=== PATIENT | female | born 1965 | race Caucasian/White ===

== ENCOUNTER 2017-03-21 19:05 | Inpatient (IN) | payer OTHER, SELFPAY ==
[~2017-03-21] VITALS: Ht 157.5 cm; Wt 116.9 kg
[2017-03-21 19:32] LABS: HEMOGLOBIN 13.8 g/dL (11.7-16.4); WHITE BLOOD COUNT 7.3 x10^3/uL (3.4-10)
[2017-03-21 19:43] LABS: BLOOD UREA NITROGEN 16 mg/dL (7-18)
[2017-03-21] MEDS ORDERED: METF500T27 PO (20:02)
[2017-03-21] MEDS ORDERED: LISI-170 PO (20:02)
[2017-03-21] MEDS ORDERED: ASPIRIN 325 MG TABLET PO STA (21:26)
[2017-03-21] MEDS ORDERED: DEXAMETHASONE 4 MG/ML, 1ML IVPush ONE ×2 (21:30)
[2017-03-21] MEDS ORDERED: DEXAMETHASONE 4 MG/ML, 1ML ONE (21:38)
[2017-03-21] MEDS ORDERED: ASPIRIN 325 MG TABLET ONE (21:38)
[2017-03-21] MEDS ORDERED: morphine SULFATE 10 MG/ML, 1ML IVPush PRN (22:30)
[2017-03-21] MEDS ORDERED: hydrALAzine 20 MG/ML, 1ML IVPush PRN (22:30)
[2017-03-21] MEDS: INSULIN ASPART 100 UNITS/ML, PEN SQ-INSULIN SCH (22:30)
[2017-03-21] MEDS ORDERED: LORazepam 2 MG/ML, 1ML IVPush PRN (22:30)
[2017-03-21 23:01] VITALS: BP 157/82
[2017-03-22] MEDS ORDERED: GADOBUTROL 10 MMOL/10 ML PFS ONE (07:11)
[2017-03-22 08:00] VITALS: BP 148/82
[2017-03-22] MEDS: LISINOPRIL 20 MG TABLET PO SCH (10:03)
[2017-03-22] MEDS: INSULIN ASPART 100 UNITS/ML, PEN SQ-INSULIN SCH ×4 (10:03→22:15)
[2017-03-22] MEDS: PANTOPRAZOLE 40 MG IV IVPush SCH (10:03)
[2017-03-22] MEDS ORDERED: ACETAMINOPHEN 325 MG TABLET PO PRN (11:30)
[2017-03-22] MEDS: HEPARIN 5,000 UNITS/ML, 1ML SQ SCH ×2 (11:30→19:30)
[2017-03-22] MEDS: DEXAMETHASONE 4 MG/ML, 1ML IVPush SCH ×2 (12:25→18:33)
[2017-03-22] MEDS ORDERED: OMNIPAQUE 350 MG/ML, 100ML BOTTLE ONE (14:10)
[2017-03-22 15:44] VITALS: BP 145/84
[2017-03-22 20:00] VITALS: BP 132/77
[2017-03-23] MEDS: DEXAMETHASONE 4 MG/ML, 1ML IVPush SCH ×4 (00:25→18:16)
[2017-03-23 02:00] VITALS: BP 144/83
[2017-03-23] MEDS: HEPARIN 5,000 UNITS/ML, 1ML SQ SCH ×3 (02:50→19:30)
[2017-03-23 05:54] LABS: BLOOD UREA NITROGEN 18 mg/dL (7-18)
[2017-03-23 07:13] VITALS: BP 120/71
[2017-03-23] MEDS: PANTOPRAZOLE 40 MG IV IVPush SCH (09:01)
[2017-03-23] MEDS: LISINOPRIL 20 MG TABLET PO SCH (09:01)
[2017-03-23] MEDS: INSULIN ASPART 100 UNITS/ML, PEN SQ-INSULIN SCH ×4 (09:02→20:27)
[2017-03-23 14:44] VITALS: BP 150/92
[2017-03-23 18:46] VITALS: BP 146/80
[2017-03-24] MEDS: DEXAMETHASONE 4 MG/ML, 1ML IVPush SCH ×4 (00:21→18:37)
[2017-03-24 00:23] VITALS: BP 128/77
[2017-03-24] MEDS: HEPARIN 5,000 UNITS/ML, 1ML SQ SCH ×3 (03:30→19:30)
[2017-03-24 06:28] VITALS: BP 147/85
[2017-03-24] MEDS: LISINOPRIL 20 MG TABLET PO SCH (08:54)
[2017-03-24] MEDS: PANTOPRAZOLE 40 MG IV IVPush SCH (08:54)
[2017-03-24] MEDS: INSULIN ASPART 100 UNITS/ML, PEN SQ-INSULIN SCH ×4 (08:55→21:47)
[2017-03-24 17:50] VITALS: BP 163/96
[2017-03-24 20:00] VITALS: BP 131/83
[2017-03-25] MEDS: DEXAMETHASONE 4 MG/ML, 1ML IVPush SCH ×4 (00:59→17:35)
[2017-03-25 01:51] VITALS: BP 126/86
[2017-03-25] MEDS: HEPARIN 5,000 UNITS/ML, 1ML SQ SCH ×3 (03:09→19:30)
[2017-03-25 07:27] VITALS: BP 148/81
[2017-03-25] MEDS: INSULIN ASPART 100 UNITS/ML, PEN SQ-INSULIN SCH ×4 (09:46→22:09)
[2017-03-25] MEDS: LISINOPRIL 20 MG TABLET PO SCH (09:47)
[2017-03-25] MEDS: PANTOPRAZOLE 40 MG IV IVPush SCH (09:47)
[2017-03-25 14:29] VITALS: BP 130/79
[2017-03-25 20:29] VITALS: BP 154/69
[2017-03-26] MEDS: DEXAMETHASONE 4 MG/ML, 1ML IVPush SCH ×2 (00:42→06:05)
[2017-03-26 02:10] VITALS: BP 148/89
[2017-03-26] MEDS: HEPARIN 5,000 UNITS/ML, 1ML SQ SCH ×3 (03:30→16:32)
[2017-03-26 08:11] VITALS: BP 151/88
[2017-03-26] MEDS: LISINOPRIL 20 MG TABLET PO SCH (08:41)
[2017-03-26] MEDS: INSULIN ASPART 100 UNITS/ML, PEN SQ-INSULIN SCH ×3 (08:41→17:48)
[2017-03-26] MEDS: PANTOPRAZOLE 40 MG IV IVPush SCH (08:41)
[2017-03-26] MEDS ORDERED: SIMV5TAB5 PO (12:41)
[2017-03-26] MEDS: DEXAMETHASONE 4 MG TABLET PO SCH ×2 (13:23→17:48)
[2017-03-26 14:33] VITALS: BP 142/92
[2017-03-26] MEDS ORDERED: LORazepam 2 MG/ML, 1ML IVPush PRN (17:00)
[2017-03-26] MEDS ORDERED: morphine SULFATE 10 MG/ML, 1ML IVPush PRN (17:00)
[2017-03-26] MEDS ORDERED: hydrALAzine 20 MG/ML, 1ML IVPush PRN (17:00)
[2017-03-26] MEDS ORDERED: ACETAMINOPHEN 325 MG TABLET PO PRN (17:00)
[2017-03-26] MEDS ORDERED: DEXAMETHASONE 4 MG TABLET PO SCH (17:00)
[2017-03-27] MEDS ORDERED: ASPIRIN 81 MG TABLET CHEW PO SCH (06:00)
[2017-03-27] MEDS ORDERED: LISINOPRIL 20 MG TABLET PO SCH (09:00)
== END 2017-03-26 18:57 | disposition home or self-care (01) | DRG 72 ==
LOC: ED 21:57 → EDIP 22:00 → 4EST 22:51 → 4WST 03-22 02:43
PROVIDERS: ADMIT Hospitalist; ATTEND Hospitalist
DX: G93.9 Disorder of brain, unspecified (principal); E11.42 Type 2 diabetes mellitus with diabetic polyneuropathy; E11.65 Type 2 diabetes mellitus with hyperglycemia; I10 Essential (primary) hypertension; M21.379 Foot drop, unspecified foot; M51.36 Other intervertebral disc degeneration, lumbar region; R29.810 Facial weakness; Z86.73 Personal history of transient ischemic attack (TIA), and cerebral infarction without residual deficits; Z90.49 Acquired absence of other specified parts of digestive tract
CPT/HCPCS: 36415; 70450; 70553; 71260; 72148; 74177; 76390; 80048; 80061; 82040; 82962; 85025; 93005; 93306; 93880; 93922; 96374; A9585; J1100; J1815; Q9967; C9113

== ENCOUNTER 2017-03-30 13:44 | Inpatient (IN) | payer OTHER ==
[~2017-03-30] VITALS: Ht 157.5 cm; Wt 105.8 kg
[~2017-03-30 13:44] MED LIST: LISI-170 PO; METF500T27 PO; SIMV5TAB5 PO
[2017-03-30] MEDS ORDERED: COLE1TAB2 PO (14:13)
[2017-03-30] MEDS ORDERED: DEXA2TAB PO (14:13)
[2017-03-30] MEDS ORDERED: METF500T4 PO (14:13)
[2017-03-30] MEDS ORDERED: ATOR-2 PO (14:14)
[2017-03-30] MEDS ORDERED: SODIUM CHLORIDE FLUSH 10ML SYR IVF ONE (14:30)
[2017-03-30 14:42] LABS: HEMOGLOBIN 16.2 g/dL (11.7-16.4)
[2017-03-30 14:53] LABS: BLOOD UREA NITROGEN 16 mg/dL (7-18)
[2017-03-30 14:59] LABS: ASPARTATE AMINO TRANSFERASE 10 U/L (15-37); IS PT STATUS REG ER OR PRE ER? YES
[2017-03-30] MEDS ORDERED: SODIUM CHLORIDE FLUSH 10ML SYR IVF PRN (16:00)
[2017-03-30] MEDS ORDERED: GADOBUTROL 10 MMOL/10 ML PFS ONE (16:48)
[2017-03-30] MEDS ORDERED: BISACODYL 10 MG SUPP PR PRN (17:00)
[2017-03-30] MEDS ORDERED: ONDANSETRON 2MG/ML, 2ML IVPush PRN (17:00)
[2017-03-30] MEDS ORDERED: ZOLPIDEM 5MG TABLET PO PRN (17:00)
[2017-03-30] MEDS ORDERED: ONDANSETRON ODT 4 MG PO PRN (17:00)
[2017-03-30] MEDS ORDERED: HYDROcodone/APAP 5/325 TABLET PO PRN (17:00)
[2017-03-30] MEDS ORDERED: hydrALAzine 20 MG/ML, 1ML IVPush PRN (17:00)
[2017-03-30 17:47] VITALS: BP 141/81
[2017-03-30] MEDS: metFORMIN 500 MG TABLET PO SCH (20:18)
[2017-03-30 20:58] VITALS: BP 122/84
[2017-03-30] MEDS ORDERED: ATORVASTATIN 80 MG TABLET PO SCH (21:00)
[2017-03-30] MEDS: DEXAMETHASONE 1 MG TABLET PO SCH ×2 (21:00→22:26)
[2017-03-30] MEDS: FAMOTIDINE 20 MG TABLET PO SCH (21:00)
[2017-03-30] MEDS: COLESTIPOL 1 GM TABLET PO SCH (21:00)
[2017-03-30] MEDS: INSULIN ASPART 100 UNITS/ML, PEN SQ-INSULIN SCH (22:22)
[2017-03-31 02:55] VITALS: BP 122/74
[2017-03-31 03:19] VITALS: BP 141/81
[2017-03-31 05:36] LABS: HEMATOCRIT 42.2 % (34.6-47.8); HEMOGLOBIN 14.3 g/dL (11.7-16.4); WHITE BLOOD COUNT 10.3 x10^3/uL (3.4-10)
[2017-03-31 05:45] LABS: BLOOD UREA NITROGEN 17 mg/dL (7-18)
[2017-03-31 06:58] VITALS: BP 129/82
[2017-03-31 07:52] LABS: PATH.CAST-FLAG NOT PRESENT; SPERM-FLAG NOT PRESENT; SRC-FLAG NOT PRESENT; XTAL-FLAG NOT PRESENT; YLC-FLAG NOT PRESENT
[2017-03-31] MEDS: COLESTIPOL 1 GM TABLET PO SCH ×2 (08:34→21:00)
[2017-03-31] MEDS: FAMOTIDINE 20 MG TABLET PO SCH ×2 (08:34→21:03)
[2017-03-31] MEDS: INSULIN ASPART 100 UNITS/ML, PEN SQ-INSULIN SCH ×4 (08:35→21:04)
[2017-03-31] MEDS: metFORMIN 500 MG TABLET PO SCH ×2 (08:35→21:00)
[2017-03-31] MEDS: DEXAMETHASONE 1 MG TABLET PO SCH (08:35)
[2017-03-31] MEDS: LISINOPRIL 20 MG TABLET PO SCH (08:36)
[2017-03-31] MEDS: ENOXAPARIN 40 MG/0.4 ML SQ SCH ×2 (11:30→12:56)
[2017-03-31 14:11] VITALS: BP 127/79
[2017-03-31 19:25] VITALS: BP 123/80
[2017-03-31] MEDS: ATORVASTATIN 10 MG TABLET PO SCH (21:00)
[2017-04-01 02:30] VITALS: BP 109/74
[2017-04-01 08:11] VITALS: BP 144/81
[2017-04-01] MEDS: metFORMIN 500 MG TABLET PO SCH ×2 (09:00→19:12)
[2017-04-01] MEDS: ENOXAPARIN 40 MG/0.4 ML SQ SCH (09:17)
[2017-04-01] MEDS: COLESTIPOL 1 GM TABLET PO SCH ×2 (09:18→20:58)
[2017-04-01] MEDS: FAMOTIDINE 20 MG TABLET PO SCH ×2 (09:19→20:59)
[2017-04-01] MEDS: LISINOPRIL 20 MG TABLET PO SCH (09:20)
[2017-04-01] MEDS: INSULIN ASPART 100 UNITS/ML, PEN SQ-INSULIN SCH ×4 (09:21→21:14)
[2017-04-01 14:20] VITALS: BP 140/78
[2017-04-01 20:00] VITALS: BP 130/78
[2017-04-01] MEDS: ATORVASTATIN 10 MG TABLET PO SCH (20:58)
[2017-04-02 01:32] VITALS: BP 119/70
[2017-04-02] MEDS: metFORMIN 500 MG TABLET PO SCH ×2 (07:39→21:00)
[2017-04-02 07:44] VITALS: BP 134/78
[2017-04-02] MEDS: FAMOTIDINE 20 MG TABLET PO SCH ×2 (08:35→21:20)
[2017-04-02] MEDS: COLESTIPOL 1 GM TABLET PO SCH ×2 (08:35→21:00)
[2017-04-02] MEDS: LISINOPRIL 20 MG TABLET PO SCH (08:36)
[2017-04-02] MEDS: INSULIN ASPART 100 UNITS/ML, PEN SQ-INSULIN SCH ×4 (08:37→21:22)
[2017-04-02] MEDS: ENOXAPARIN 40 MG/0.4 ML SQ SCH (09:00)
[2017-04-02 14:06] VITALS: BP 130/83
[2017-04-02 20:06] VITALS: BP 131/85
[2017-04-02] MEDS: ATORVASTATIN 10 MG TABLET PO SCH (21:00)
[2017-04-03 00:01] VITALS: BP 132/84
[2017-04-03 03:24] LABS: HEMATOCRIT 39.2 % (34.6-47.8); HEMOGLOBIN 13.1 g/dL (11.7-16.4); WHITE BLOOD COUNT 10.3 x10^3/uL (3.4-10)
[2017-04-03 03:33] LABS: BLOOD UREA NITROGEN 13 mg/dL (7-18)
[2017-04-03] MEDS: INSULIN ASPART 100 UNITS/ML, PEN SQ-INSULIN SCH ×4 (07:00→21:16)
[2017-04-03 07:28] VITALS: BP 130/87
[2017-04-03] MEDS ORDERED: GADOBUTROL 10 MMOL/10 ML PFS ONE (08:45)
[2017-04-03] MEDS: metFORMIN 500 MG TABLET PO SCH ×2 (09:00→21:14)
[2017-04-03] MEDS: FAMOTIDINE 20 MG TABLET PO SCH ×2 (09:00→21:19)
[2017-04-03] MEDS: LISINOPRIL 20 MG TABLET PO SCH (09:00)
[2017-04-03] MEDS: COLESTIPOL 1 GM TABLET PO SCH ×2 (09:00→21:18)
[2017-04-03] MEDS ORDERED: REMIFENTANIL 2 MG ONE (10:38)
[2017-04-03] MEDS ORDERED: NEOSTIGMINE 1 MG/ML, 10ML ONE (10:41)
[2017-04-03] MEDS ORDERED: ONDANSETRON 2MG/ML, 2ML ONE (10:41)
[2017-04-03] MEDS ORDERED: PROPOFOL 10 MG/ML, 20ML ONE (10:41)
[2017-04-03] MEDS ORDERED: CEFAZOLIN 1,000 MG ONE (10:41)
[2017-04-03] MEDS ORDERED: DEXAMETHASONE 4 MG/ML, 1ML ONE (10:41)
[2017-04-03] MEDS ORDERED: SUCCINYLCHOLINE 20 MG/ML, 10ML ONE ×2 (10:41)
[2017-04-03] MEDS ORDERED: ROCURONIUM 10 MG/ML ONE (10:41)
[2017-04-03] MEDS ORDERED: GLYCOPYRROLATE 0.2MG/1ML, 5ML ONE (10:41)
[2017-04-03] MEDS ORDERED: MIDAZOLAM 1 MG/ML, 2ML ONE (10:41)
[2017-04-03] MEDS ORDERED: FENTANYL PF 100 MCG/2ML ONE ×4 (10:41→14:48)
[2017-04-03] MEDS ORDERED: OXYcodone 5 MG/5 ML ORAL.SOL UDC PO PRN (11:00)
[2017-04-03] MEDS ORDERED: HYDROcodone/APAP 7.5-325MG/15ML UDC PO PRN (11:00)
[2017-04-03] MEDS ORDERED: HYDROmorphone 1 MG/ML, 1ML IV PRN (11:00)
[2017-04-03] MEDS ORDERED: LABETALOL 5MG/ML, 20ML IV PRN ×2 (11:00→15:00)
[2017-04-03] MEDS ORDERED: hydrALAzine 20 MG/ML, 1ML IV PRN ×2 (11:00→16:00)
[2017-04-03] MEDS ORDERED: ONDANSETRON 2MG/ML, 2ML IVPush PRN (11:00)
[2017-04-03] MEDS ORDERED: BACITRACIN OINT 500U/GM, 15 GM ONE (11:26)
[2017-04-03] MEDS ORDERED: BUPIVACAINE/PF 0.5% ONE (11:26)
[2017-04-03] MEDS ORDERED: THROMBIN 5,000 UNIT VIAL TP ONE (11:26)
[2017-04-03] MEDS ORDERED: BACITRACIN 50,000 UNIT ONE (11:26)
[2017-04-03] MEDS ORDERED: CEFTRIAXONE 1,000 MG ONE (11:27)
[2017-04-03] MEDS ORDERED: LABETALOL 5MG/ML 40ML VIAL ONE (11:42)
[2017-04-03] MEDS ORDERED: LEVETIRACETAM 1,000 MG in SODIUM CHLORIDE 0.9% 100 ML IV ONE (12:00)
[2017-04-03 13:39] VITALS: BP 128/84
[2017-04-03] MEDS ORDERED: OXYcodone 5 MG/5 ML ORAL.SOL UDC ONE (14:36)
[2017-04-03] MEDS ORDERED: hydrALAzine 20 MG/ML, 1ML ONE (14:36)
[2017-04-03] MEDS: hydrALAzine 20 MG/ML, 1ML IV PRN ×2 (14:40→16:03)
[2017-04-03] MEDS: FENTANYL PF 100 MCG/2ML IV PRN ×3 (14:44→15:17)
[2017-04-03] MEDS ORDERED: METOPROLOL 1 MG/ML, 5ML IV PRN (15:00)
[2017-04-03] MEDS ORDERED: DEXAMETHASONE 4 MG TABLET PO SCH (16:00)
[2017-04-03] MEDS ORDERED: DEXAMETHASONE 4 MG/ML, 1ML IV SCH ×2 (16:00→16:30)
[2017-04-03] MEDS ORDERED: BISACODYL 10 MG SUPP PR PRN (16:30)
[2017-04-03] MEDS ORDERED: ACETAMINOPHEN 325 MG TABLET PO PRN (16:30)
[2017-04-03] MEDS ORDERED: MAGNESIUM HYDROXIDE 8%, 30ML UDC PO PRN (16:30)
[2017-04-03] MEDS ORDERED: ONDANSETRON 2MG/ML, 2ML IV PRN (16:30)
[2017-04-03] MEDS ORDERED: OXYcodone/APAP 5/325MG TABLET PO PRN (16:30)
[2017-04-03] MEDS ORDERED: ACETAMINOPHEN 650 MG SUPP PR PRN (16:30)
[2017-04-03] MEDS: morphine SULFATE 10 MG/ML, 1ML IV PRN ×2 (18:14→21:29)
[2017-04-03] MEDS: DEXAMETHASONE 4 MG TABLET PO SCH ×2 (19:54→22:40)
[2017-04-03] MEDS: HYDROcodone/APAP 5/325 TABLET PO PRN (20:10)
[2017-04-03] MEDS: ENALAPRILAT 1.25 MG/ML, 2ML IV SCH ×2 (20:22→20:34)
[2017-04-03] MEDS: CEFAZOLIN PMX 1GM/50ML 50 ML IVPB SCH (20:22)
[2017-04-03] MEDS: NS + 20MEQ KCL 1,000 ML IV SCH (20:22)
[2017-04-03] MEDS: DEXAMETHASONE 10 MG in SODIUM CHLORIDE 0.9% 50 ML IV SCH (21:14)
[2017-04-03] MEDS: ATORVASTATIN 10 MG TABLET PO SCH (21:18)
[2017-04-03] MEDS: LEVETIRACETAM 500 MG in SODIUM CHLORIDE 0.9% 100 ML IV SCH (22:52)
[2017-04-04] MEDS: DEXAMETHASONE 10 MG in SODIUM CHLORIDE 0.9% 50 ML IV SCH ×3 (02:56→20:25)
[2017-04-04] MEDS: HYDROcodone/APAP 5/325 TABLET PO PRN ×4 (03:00→21:20)
[2017-04-04 04:00] VITALS: BP 127/72
[2017-04-04] MEDS: ENALAPRILAT 1.25 MG/ML, 2ML IV SCH ×6 (04:00→23:09)
[2017-04-04] MEDS: DEXAMETHASONE 4 MG TABLET PO SCH (04:30)
[2017-04-04] MEDS: CEFAZOLIN PMX 1GM/50ML 50 ML IVPB SCH (04:38)
[2017-04-04 05:20] LABS: BLOOD UREA NITROGEN 10 mg/dL (7-18)
[2017-04-04 05:22] LABS: HEMATOCRIT 39.1 % (34.6-47.8); HEMOGLOBIN 13.2 g/dL (11.7-16.4); WHITE BLOOD COUNT 13.6 x10^3/uL (3.4-10)
[2017-04-04] MEDS: INSULIN ASPART 100 UNITS/ML, PEN SQ-INSULIN SCH ×4 (07:48→21:25)
[2017-04-04] MEDS ORDERED: GADOBUTROL 10 MMOL/10 ML PFS ONE (08:50)
[2017-04-04] MEDS: metFORMIN 500 MG TABLET PO SCH ×2 (09:00→21:00)
[2017-04-04] MEDS: SENNA/DOCUSATE TABLET PO SCH (09:00)
[2017-04-04] MEDS: COLESTIPOL 1 GM TABLET PO SCH ×2 (09:11→21:00)
[2017-04-04] MEDS: LISINOPRIL 20 MG TABLET PO SCH (09:11)
[2017-04-04] MEDS: FAMOTIDINE 20 MG TABLET PO SCH ×2 (09:11→21:19)
[2017-04-04] MEDS: morphine SULFATE 10 MG/ML, 1ML IV PRN (11:17)
[2017-04-04] MEDS: LEVETIRACETAM 500 MG in SODIUM CHLORIDE 0.9% 100 ML IV SCH ×2 (11:17→23:10)
[2017-04-04] MEDS ORDERED: LIDOCAINE 1%, 20ML ONE (14:59)
[2017-04-04] MEDS ORDERED: FENTANYL PF 100 MCG/2ML ONE (16:20)
[2017-04-04] MEDS: NS + 20MEQ KCL 1,000 ML IV SCH ×2 (17:00→20:25)
[2017-04-04] MEDS ORDERED: VISIPAQUE 270 MG/ML, 50ML BOTTLE ONE (17:10)
[2017-04-04 18:59] VITALS: BP 140/82
[2017-04-04] MEDS: ATORVASTATIN 10 MG TABLET PO SCH (21:00)
[2017-04-05 02:48] VITALS: BP 128/84
[2017-04-05] MEDS: HYDROcodone/APAP 5/325 TABLET PO PRN ×3 (03:19→19:59)
[2017-04-05] MEDS: ENALAPRILAT 1.25 MG/ML, 2ML IV SCH ×5 (03:20→19:59)
[2017-04-05] MEDS: DEXAMETHASONE 10 MG in SODIUM CHLORIDE 0.9% 50 ML IV SCH (03:51)
[2017-04-05 05:59] LABS: HEMATOCRIT 37.8 % (34.6-47.8); HEMOGLOBIN 12.4 g/dL (11.7-16.4); WHITE BLOOD COUNT 12.6 x10^3/uL (3.4-10)
[2017-04-05 06:43] LABS: ASPARTATE AMINO TRANSFERASE 10 U/L (15-37); BLOOD UREA NITROGEN 17 mg/dL (7-18)
[2017-04-05 07:24] VITALS: BP 122/80
[2017-04-05] MEDS: FAMOTIDINE 20 MG TABLET PO SCH ×2 (07:30→21:14)
[2017-04-05] MEDS: LISINOPRIL 20 MG TABLET PO SCH (07:30)
[2017-04-05] MEDS: SENNA/DOCUSATE TABLET PO SCH (07:31)
[2017-04-05] MEDS: metFORMIN 500 MG TABLET PO SCH ×2 (07:31→21:00)
[2017-04-05] MEDS: COLESTIPOL 1 GM TABLET PO SCH ×2 (07:31→21:00)
[2017-04-05] MEDS: INSULIN ASPART 100 UNITS/ML, PEN SQ-INSULIN SCH ×4 (07:35→21:27)
[2017-04-05] MEDS: NS + 20MEQ KCL 1,000 ML IV SCH (10:01)
[2017-04-05 11:08] VITALS: BP 123/80
[2017-04-05] MEDS: LEVETIRACETAM 500 MG in SODIUM CHLORIDE 0.9% 100 ML IV SCH (11:34)
[2017-04-05 13:20] VITALS: BP 125/77
[2017-04-05 16:06] VITALS: BP 131/82
[2017-04-05] MEDS: DEXAMETHASONE 4 MG TABLET PO SCH (16:08)
[2017-04-05 20:00] VITALS: BP 124/85
[2017-04-05] MEDS: ATORVASTATIN 10 MG TABLET PO SCH (21:00)
[2017-04-06] VITALS: BP 127/82
[2017-04-06] MEDS: NS + 20MEQ KCL 1,000 ML IV SCH ×2 (00:08→14:57)
[2017-04-06] MEDS: LEVETIRACETAM 500 MG in SODIUM CHLORIDE 0.9% 100 ML IV SCH ×3 (00:08→23:54)
[2017-04-06] MEDS ORDERED: INSULIN ASPART 100 UNITS/ML, PEN SQ-INSULIN ONE (00:30)
[2017-04-06] MEDS: ENALAPRILAT 1.25 MG/ML, 2ML IV SCH ×6 (00:34→21:52)
[2017-04-06 03:26] VITALS: BP 142/88
[2017-04-06 04:00] VITALS: BP 127/82
[2017-04-06 04:44] LABS: BLOOD UREA NITROGEN 17 mg/dL (7-18)
[2017-04-06 05:29] LABS: HEMATOCRIT 35.8 % (34.6-47.8)
[2017-04-06] MEDS: INSULIN ASPART 100 UNITS/ML, PEN SQ-INSULIN SCH ×4 (07:48→21:33)
[2017-04-06] MEDS: DEXAMETHASONE 4 MG TABLET PO SCH ×2 (07:49→16:06)
[2017-04-06] MEDS: LISINOPRIL 20 MG TABLET PO SCH (07:49)
[2017-04-06] MEDS: COLESTIPOL 1 GM TABLET PO SCH ×2 (07:49→21:00)
[2017-04-06] MEDS: FAMOTIDINE 20 MG TABLET PO SCH ×2 (07:49→21:31)
[2017-04-06] MEDS: SENNA/DOCUSATE TABLET PO SCH (07:50)
[2017-04-06] MEDS: metFORMIN 500 MG TABLET PO SCH ×2 (07:50→21:00)
[2017-04-06 09:00] VITALS: BP 123/83
[2017-04-06 11:01] VITALS: BP 124/81
[2017-04-06 19:30] VITALS: BP 141/84
[2017-04-06] MEDS: ATORVASTATIN 10 MG TABLET PO SCH (21:00)
[2017-04-06] MEDS: HYDROcodone/APAP 5/325 TABLET PO PRN (21:51)
[2017-04-07 02:18] VITALS: BP 138/87
[2017-04-07] MEDS: ENALAPRILAT 1.25 MG/ML, 2ML IV SCH ×6 (02:19→22:36)
[2017-04-07] MEDS: NS + 20MEQ KCL 1,000 ML IV SCH ×2 (03:00→18:18)
[2017-04-07 05:12] LABS: HEMATOCRIT 34.8 % (34.6-47.8); HEMOGLOBIN 11.7 g/dL (11.7-16.4); WHITE BLOOD COUNT 9.6 x10^3/uL (3.4-10)
[2017-04-07 05:22] LABS: BLOOD UREA NITROGEN 15 mg/dL (7-18)
[2017-04-07] MEDS: metFORMIN 500 MG TABLET PO SCH ×2 (07:03→20:47)
[2017-04-07] MEDS: DEXAMETHASONE 4 MG TABLET PO SCH ×2 (07:25→16:54)
[2017-04-07] MEDS: INSULIN ASPART 100 UNITS/ML, PEN SQ-INSULIN SCH ×4 (07:26→20:56)
[2017-04-07 08:31] VITALS: BP 136/83
[2017-04-07] MEDS: COLESTIPOL 1 GM TABLET PO SCH ×2 (09:00→20:55)
[2017-04-07] MEDS: SENNA/DOCUSATE TABLET PO SCH (09:43)
[2017-04-07] MEDS: FAMOTIDINE 20 MG TABLET PO SCH ×2 (09:44→20:56)
[2017-04-07] MEDS: LISINOPRIL 20 MG TABLET PO SCH (09:47)
[2017-04-07] MEDS: LEVETIRACETAM 500 MG in SODIUM CHLORIDE 0.9% 100 ML IV SCH ×2 (10:45→22:36)
[2017-04-07 13:06] VITALS: BP 125/64
[2017-04-07] MEDS: ATORVASTATIN 10 MG TABLET PO SCH (20:55)
[2017-04-07 22:22] VITALS: BP 151/86
[2017-04-08 01:55] VITALS: BP 139/76
[2017-04-08] MEDS: ENALAPRILAT 1.25 MG/ML, 2ML IV SCH ×3 (02:02→10:22)
[2017-04-08 04:52] LABS: HEMOGLOBIN 11.9 g/dL (11.7-16.4)
[2017-04-08 05:08] LABS: BLOOD UREA NITROGEN 15 mg/dL (7-18)
[2017-04-08 06:09] VITALS: BP 139/85
[2017-04-08] MEDS: NS + 20MEQ KCL 1,000 ML IV SCH (06:11)
[2017-04-08] MEDS: INSULIN ASPART 100 UNITS/ML, PEN SQ-INSULIN SCH ×4 (07:44→20:27)
[2017-04-08] MEDS: DEXAMETHASONE 4 MG TABLET PO SCH ×2 (07:46→16:28)
[2017-04-08] MEDS: COLESTIPOL 1 GM TABLET PO SCH ×2 (09:00→20:25)
[2017-04-08] MEDS: SENNA/DOCUSATE TABLET PO SCH (09:00)
[2017-04-08] MEDS: FAMOTIDINE 20 MG TABLET PO SCH ×2 (10:21→20:25)
[2017-04-08] MEDS: LEVETIRACETAM 500 MG in SODIUM CHLORIDE 0.9% 100 ML IV SCH (10:21)
[2017-04-08] MEDS: LISINOPRIL 20 MG TABLET PO SCH ×2 (10:22→20:26)
[2017-04-08] MEDS ORDERED: ENALAPRILAT 1.25 MG/ML, 2ML IV PRN (12:00)
[2017-04-08] MEDS: metFORMIN 500 MG TABLET PO SCH ×2 (12:27→20:26)
[2017-04-08 14:29] VITALS: BP 131/79
[2017-04-08 19:34] VITALS: BP 134/82
[2017-04-08] MEDS: ATORVASTATIN 10 MG TABLET PO SCH (20:14)
[2017-04-08] MEDS: LEVETIRACETAM 500 MG TABLET PO SCH (20:26)
[2017-04-09 02:12] VITALS: BP 150/80
[2017-04-09 05:26] LABS: HEMATOCRIT 35.1 % (34.6-47.8); HEMOGLOBIN 11.9 g/dL (11.7-16.4); WHITE BLOOD COUNT 9.2 x10^3/uL (3.4-10)
[2017-04-09 05:40] LABS: BLOOD UREA NITROGEN 17 mg/dL (7-18)
[2017-04-09 07:20] VITALS: BP 150/85
[2017-04-09] MEDS: metFORMIN 500 MG TABLET PO SCH ×2 (08:11→17:26)
[2017-04-09] MEDS: DEXAMETHASONE 4 MG TABLET PO SCH ×2 (08:11→17:23)
[2017-04-09] MEDS: COLESTIPOL 1 GM TABLET PO SCH ×2 (08:12→21:00)
[2017-04-09] MEDS: LEVETIRACETAM 500 MG TABLET PO SCH ×2 (08:12→21:45)
[2017-04-09] MEDS: SENNA/DOCUSATE TABLET PO SCH (08:13)
[2017-04-09] MEDS: FAMOTIDINE 20 MG TABLET PO SCH ×2 (08:13→21:45)
[2017-04-09] MEDS: LISINOPRIL 20 MG TABLET PO SCH ×2 (08:15→21:35)
[2017-04-09] MEDS: INSULIN ASPART 100 UNITS/ML, PEN SQ-INSULIN SCH ×5 (08:26→21:45)
[2017-04-09 12:56] VITALS: BP 125/79
[2017-04-09] MEDS ORDERED: ACETAMINOPHEN 325 MG TABLET PO PRN (19:30)
[2017-04-09] MEDS ORDERED: ONDANSETRON 2MG/ML, 2ML IV PRN (19:30)
[2017-04-09] MEDS ORDERED: hydrALAzine 20 MG/ML, 1ML IV PRN (19:30)
[2017-04-09] MEDS ORDERED: ACETAMINOPHEN 650 MG SUPP PR PRN (19:30)
[2017-04-09] MEDS ORDERED: LABETALOL 5MG/ML, 20ML IV PRN (19:30)
[2017-04-09] MEDS ORDERED: MAGNESIUM HYDROXIDE 8%, 30ML UDC PO PRN (19:30)
[2017-04-09] MEDS ORDERED: BISACODYL 10 MG SUPP PR PRN (19:30)
[2017-04-09] MEDS ORDERED: ZOLPIDEM 5MG TABLET PO PRN (19:30)
[2017-04-09] MEDS ORDERED: ENALAPRILAT 1.25 MG/ML, 2ML IV PRN (19:30)
[2017-04-09 19:51] VITALS: BP 115/73
[2017-04-09 20:20] VITALS: BP 123/78
[2017-04-09] MEDS: ATORVASTATIN 10 MG TABLET PO SCH (21:00)
[2017-04-10 03:23] VITALS: BP 135/84
[2017-04-10 05:39] LABS: HEMATOCRIT 36.2 % (34.6-47.8); HEMOGLOBIN 12.1 g/dL (11.7-16.4); WHITE BLOOD COUNT 9.2 x10^3/uL (3.4-10)
[2017-04-10 05:49] LABS: BLOOD UREA NITROGEN 12 mg/dL (7-18)
[2017-04-10 07:06] VITALS: BP 151/91
[2017-04-10] MEDS: SENNA/DOCUSATE TABLET PO SCH (09:00)
[2017-04-10] MEDS: DEXAMETHASONE 4 MG TABLET PO SCH (09:06)
[2017-04-10] MEDS: metFORMIN 500 MG TABLET PO SCH (09:06)
[2017-04-10] MEDS: FAMOTIDINE 20 MG TABLET PO SCH (09:07)
[2017-04-10] MEDS: LEVETIRACETAM 500 MG TABLET PO SCH (09:07)
[2017-04-10] MEDS: LISINOPRIL 20 MG TABLET PO SCH (09:07)
[2017-04-10] MEDS: COLESTIPOL 1 GM TABLET PO SCH (09:08)
[2017-04-10] MEDS: INSULIN ASPART 100 UNITS/ML, PEN SQ-INSULIN SCH ×2 (09:17→12:33)
[2017-04-10] MEDS ORDERED: HYDR-3341 PO (11:22)
[2017-04-10] MEDS ORDERED: ZOLP5TAB PO (11:22)
[2017-04-10] MEDS ORDERED: CLON0.1T12 PO/NG (11:22)
[2017-04-10] MEDS ORDERED: ONDA4TAB10 PO (11:22)
[2017-04-10] MEDS ORDERED: LEVE500T53 PO (11:22)
[2017-04-10] MEDS ORDERED: OXYC1TAB7 PO (11:22)
[2017-04-10] MEDS ORDERED: ACET325T14 PO (11:22)
[2017-04-10] MEDS ORDERED: BISA10SU65 PR (11:22)
[2017-04-10] MEDS ORDERED: HYDR-3240 PO (11:22)
[2017-04-10] MEDS ORDERED: DEXA4TAB PO (11:22)
[2017-04-10] MEDS ORDERED: FAMO20TA7 PO (11:22)
[2017-04-10] MEDS ORDERED: INSU100I18 SQ-INSULIN (11:22)
[2017-04-10] MEDS ORDERED: SENN1TAB7 PO (11:22)
[2017-04-10 14:03] VITALS: BP 125/82
== END 2017-04-10 15:10 | DRG 26 ==
LOC: ED 15:03 → EDIP 15:35 → 4WST 17:34 → CCU 04-03 14:24 → 3NW 04-04 13:37
PROVIDERS: ADMIT Hospitalist; ATTEND Hospitalist
PROC: 00B00ZZ Excision of Brain, Open Approach (ICD-10-PCS; principal; 2017-04-03 11:30)
DX: C71.9 Malignant neoplasm of brain, unspecified (principal); I82.402 Acute embolism and thrombosis of unspecified deep veins of left lower extremity; E11.40 Type 2 diabetes mellitus with diabetic neuropathy, unspecified; I10 Essential (primary) hypertension; K58.9 Irritable bowel syndrome, unspecified; Z90.49 Acquired absence of other specified parts of digestive tract; Z79.84 Long term (current) use of oral hypoglycemic drugs; Z79.899 Other long term (current) drug therapy
CPT/HCPCS: 36415; 37191; 70552; 70553; 76390; 80048; 80053; 81001; 81003; 82962; 83605; 84484; 85025; 85610; 85730; 87015; 87070; 87075; 87081; 87086; 87102; 87116; 87147; 87205; 87206; 88307; 88331; 93005; 99285; A9585; C1713; C1729; J0690; J0696; J1100; J1650; J1815; J1953; J2250; J2405; J2704; J2710; J3010; J3480; J3490; Q9966; A4648; C1781; C1880; J0330; J0360; J2270

== ENCOUNTER → 2017-04-17 | Outpatient (CLI) | payer OTHER ==
[~2017-04-17] MED LIST changes: +ACET325T14 PO; +ATOR-2 PO; +BISA10SU65 PR; +CLON0.1T12 PO/NG; +COLE1TAB2 PO; +DEXA2TAB PO; +DEXA4TAB PO; +FAMO20TA7 PO; +HYDR-3240 PO; +HYDR-3341 PO; +INSU100I18 SQ-INSULIN; +LEVE500T53 PO; +METF500T4 PO; +ONDA4TAB10 PO; +OXYC1TAB7 PO; +SENN1TAB7 PO; +ZOLP5TAB PO
== END | disposition home or self-care (01) ==
LOC: ROC 10:15 → EDSTATUS 11:51
PROVIDERS: ATTEND Radiology Radiation Oncology
DX: C71.9 Malignant neoplasm of brain, unspecified (principal)
CPT/HCPCS: 99214; G0463

== ENCOUNTER 2017-05-08 23:04 | Inpatient (IN) | payer OTHER ==
[~2017-05-08] VITALS: Ht 157.5 cm; Wt 106.3 kg
[~2017-05-08 23:04] MED LIST changes: -INSU100V13 SQ-INSULIN; -LEVE100020 PO; -TEMO140C5 PO
[2017-05-08] MEDS ORDERED: SODIUM CHLORIDE FLUSH 10ML SYR IVF ONE (23:30)
[2017-05-08] MEDS ORDERED: HYDROmorphone 1 MG/ML, 1ML IVPush PRN (23:30)
[2017-05-08] MEDS ORDERED: DIAZEPAM 5 MG/ML, 2ML IVPush ONE (23:30)
[2017-05-08] MEDS ORDERED: HALOPERIDOL 5 MG/ML IM ONE (23:30)
[2017-05-08] MEDS ORDERED: SODIUM CHLORIDE 0.9% 1,000ML IVBOLUS ONE (23:30)
[2017-05-08] MEDS ORDERED: HYDROmorphone 1 MG/ML, 1ML ONE (23:31)
[2017-05-08] MEDS ORDERED: DIAZEPAM 5 MG/ML, 2ML ONE (23:31)
[2017-05-08] MEDS ORDERED: HALOPERIDOL 5 MG/ML ONE (23:31)
[2017-05-08 23:48] LABS: HEMATOCRIT 38.4 % (34.6-47.8); HEMOGLOBIN 12.8 g/dL (11.7-16.4); WHITE BLOOD COUNT 7.7 x10^3/uL (3.4-10)
[2017-05-08 23:55] LABS: BLOOD UREA NITROGEN 16 mg/dL (7-18)
[2017-05-09] MEDS ORDERED: LORazepam 2 MG/ML, 1ML ONE ×2 (01:47→02:52)
[2017-05-09] MEDS ORDERED: LORazepam 2 MG/ML, 1ML IVPush ONE (02:00)
[2017-05-09] MEDS ORDERED: LEVETIRACETAM 500 MG in SODIUM CHLORIDE 0.9% 100 ML IV ONE (02:30)
[2017-05-09] MEDS ORDERED: GLUCAGON 1 MG IM PRN (03:30)
[2017-05-09] MEDS ORDERED: hydrALAzine 20 MG/ML, 1ML IVPush PRN (03:30)
[2017-05-09] MEDS ORDERED: DEXTROSE 4 GM TAB.CHEW PO PRN (03:30)
[2017-05-09] MEDS ORDERED: ONDANSETRON 2MG/ML, 2ML IVPush PRN (03:30)
[2017-05-09] MEDS ORDERED: DEXTROSE 50%, 50ML SYRINGE IVPush PRN (03:30)
[2017-05-09] MEDS ORDERED: ACETAMINOPHEN 325 MG TABLET PO PRN (03:30)
[2017-05-09] MEDS ORDERED: FILTER 0.22 MICRON IV ONE (04:00)
[2017-05-09] MEDS ORDERED: PHENYTOIN SODIUM IV ONE (04:00)
[2017-05-09] MEDS ORDERED: SODIUM CHLORIDE 0.9% IV ONE (04:00)
[2017-05-09 04:28] VITALS: BP 122/77
[2017-05-09] MEDS: SODIUM CHLORIDE 0.9% 1,000 ML IV SCH ×2 (05:08→23:37)
[2017-05-09] MEDS ORDERED: LEVE100020 PO (05:26)
[2017-05-09] MEDS ORDERED: INSU100V13 SQ-INSULIN (05:30)
[2017-05-09] MEDS ORDERED: TEMO140C5 PO (05:32)
[2017-05-09 06:50] VITALS: BP 138/84
[2017-05-09] MEDS ORDERED: GADOBUTROL 10 MMOL/10 ML PFS ONE (08:45)
[2017-05-09] MEDS: SODIUM CHLORIDE FLUSH 10ML SYR IVF SCH ×2 (09:00→21:31)
[2017-05-09] MEDS ORDERED: DEXAMETHASONE 4 MG/ML, 5ML ONE (10:08)
[2017-05-09] MEDS: DEXAMETHASONE 4 MG/ML, 1ML IVPush SCH ×3 (10:29→23:38)
[2017-05-09] MEDS ORDERED: DEXAMETHASONE 4 MG/ML, 1ML IVPush ONE (11:00)
[2017-05-09] MEDS ORDERED: PHENYTOIN SODIUM 50 MG/ML, 2ML IV SCH (12:00)
[2017-05-09] MEDS: ENOXAPARIN 100 MG/ML SQ SCH ×2 (12:31→23:38)
[2017-05-09] MEDS: INSULIN ASPART 100 UNITS/ML, PEN SQ-INSULIN SCH ×3 (13:13→21:00)
[2017-05-09 13:30] VITALS: BP 128/84
[2017-05-09] MEDS: LEVETIRACETAM 1,500 MG in SODIUM CHLORIDE 0.9% 100 ML IV SCH (15:10)
[2017-05-09 19:23] VITALS: BP 141/91
[2017-05-09] MEDS: ONDANSETRON 2MG/ML, 2ML IVPush PRN (21:32)
[2017-05-09] MEDS: TEMOZOLOMIDE 140 MG HOMEMEDPO SCH (22:00)
[2017-05-10] MEDS: LEVETIRACETAM 1,500 MG in SODIUM CHLORIDE 0.9% 100 ML IV SCH ×2 (02:29→16:04)
[2017-05-10 02:33] VITALS: BP 120/76
[2017-05-10 04:53] LABS: HEMATOCRIT 36.7 % (34.6-47.8); HEMOGLOBIN 12.3 g/dL (11.7-16.4); WHITE BLOOD COUNT 7.9 x10^3/uL (3.4-10)
[2017-05-10 04:56] LABS: BLOOD UREA NITROGEN 11 mg/dL (7-18)
[2017-05-10 06:50] VITALS: BP 100/64
[2017-05-10] MEDS: DEXAMETHASONE 4 MG/ML, 1ML IVPush SCH ×3 (07:43→21:26)
[2017-05-10] MEDS: INSULIN ASPART 100 UNITS/ML, PEN SQ-INSULIN SCH ×4 (07:44→21:28)
[2017-05-10] MEDS: SODIUM CHLORIDE FLUSH 10ML SYR IVF SCH ×2 (07:44→21:26)
[2017-05-10] MEDS: ENOXAPARIN 100 MG/ML SQ SCH (12:20)
[2017-05-10] MEDS: SODIUM CHLORIDE 0.9% 1,000 ML IV SCH (14:30)
[2017-05-10 14:45] VITALS: BP 124/79
[2017-05-10 18:51] VITALS: BP 122/68
[2017-05-10] MEDS: LORazepam 2 MG/ML, 1ML IVPush PRN ×2 (19:57→19:59)
[2017-05-10] MEDS ORDERED: INSULIN DETEMIR 100 UNITS/ML, PEN SQ-INSULIN SCH (21:00)
[2017-05-10] MEDS: ONDANSETRON 2MG/ML, 2ML IVPush PRN (21:28)
[2017-05-10] MEDS: TEMOZOLOMIDE 140 MG HOMEMEDPO SCH (22:00)
[2017-05-11] MEDS: ENOXAPARIN 100 MG/ML SQ SCH ×3 (00:45→23:57)
[2017-05-11 01:21] VITALS: BP 162/88
[2017-05-11] MEDS: SODIUM CHLORIDE 0.9% 1,000 ML IV SCH (02:54)
[2017-05-11] MEDS: LEVETIRACETAM 1,500 MG in SODIUM CHLORIDE 0.9% 100 ML IV SCH ×2 (02:55→15:17)
[2017-05-11 04:54] LABS: BLOOD UREA NITROGEN 13 mg/dL (7-18)
[2017-05-11] MEDS: INSULIN ASPART 100 UNITS/ML, PEN SQ-INSULIN SCH ×5 (07:36→19:56)
[2017-05-11 07:43] VITALS: BP 144/79
[2017-05-11] MEDS: DEXAMETHASONE 4 MG/ML, 1ML IVPush SCH ×3 (09:56→23:57)
[2017-05-11] MEDS: SODIUM CHLORIDE FLUSH 10ML SYR IVF SCH ×2 (09:56→19:56)
[2017-05-11 14:22] VITALS: BP 117/68
[2017-05-11 15:01] VITALS: BP 149/84
[2017-05-11] MEDS: ONDANSETRON 2MG/ML, 2ML IVPush PRN (19:53)
[2017-05-11] MEDS: INSULIN DETEMIR 100 UNITS/ML, PEN SQ-INSULIN SCH (19:55)
[2017-05-11 20:09] VITALS: BP 137/84
[2017-05-11] MEDS: TEMOZOLOMIDE 140 MG HOMEMEDPO SCH (21:00)
[2017-05-12 01:31] VITALS: BP 130/80
[2017-05-12] MEDS: LEVETIRACETAM 1,500 MG in SODIUM CHLORIDE 0.9% 100 ML IV SCH ×2 (02:52→15:02)
[2017-05-12 05:03] LABS: BLOOD UREA NITROGEN 12 mg/dL (7-18)
[2017-05-12 05:12] LABS: HEMATOCRIT 36.1 % (34.6-47.8); HEMOGLOBIN 12.2 g/dL (11.7-16.4); WHITE BLOOD COUNT 6.1 x10^3/uL (3.4-10)
[2017-05-12 06:49] VITALS: BP 155/94
[2017-05-12] MEDS: LISINOPRIL 20 MG TABLET PO SCH (08:01)
[2017-05-12] MEDS: INSULIN ASPART 100 UNITS/ML, PEN SQ-INSULIN SCH ×4 (08:02→20:05)
[2017-05-12] MEDS: DEXAMETHASONE 4 MG/ML, 1ML IVPush SCH ×2 (09:40→16:31)
[2017-05-12] MEDS: SODIUM CHLORIDE FLUSH 10ML SYR IVF SCH ×2 (09:40→20:06)
[2017-05-12] MEDS: ENOXAPARIN 100 MG/ML SQ SCH ×2 (12:07→20:15)
[2017-05-12 12:19] VITALS: BP 131/83
[2017-05-12] MEDS: DEXAMETHASONE 4 MG TABLET PO SCH (17:46)
[2017-05-12 18:41] VITALS: BP 150/95
[2017-05-12] MEDS: INSULIN DETEMIR 100 UNITS/ML, PEN SQ-INSULIN SCH (20:06)
[2017-05-12] MEDS: ONDANSETRON 2MG/ML, 2ML IVPush PRN (20:16)
[2017-05-12] MEDS ORDERED: WARFARIN 7.5 MG TABLET PO-COUM ONE (20:30)
[2017-05-12] MEDS: TEMOZOLOMIDE 140 MG HOMEMEDPO SCH (21:00)
[2017-05-12] MEDS: BACLOFEN 10 MG TABLET PO SCH (21:03)
[2017-05-12] MEDS: LEVETIRACETAM 500 MG TABLET PO SCH (21:03)
[2017-05-13 01:32] VITALS: BP 111/73
[2017-05-13 04:09] LABS: HEMATOCRIT 36.9 % (34.6-47.8); HEMOGLOBIN 12.4 g/dL (11.7-16.4); WHITE BLOOD COUNT 6.9 x10^3/uL (3.4-10)
[2017-05-13 04:17] LABS: ASPARTATE AMINO TRANSFERASE 19 U/L (15-37); BLOOD UREA NITROGEN 14 mg/dL (7-18)
[2017-05-13] MEDS: INSULIN ASPART 100 UNITS/ML, PEN SQ-INSULIN SCH ×4 (07:45→20:02)
[2017-05-13 08:24] VITALS: BP 130/84
[2017-05-13] MEDS: DEXAMETHASONE 4 MG TABLET PO SCH ×3 (08:26→16:54)
[2017-05-13] MEDS: LEVETIRACETAM 500 MG TABLET PO SCH ×2 (08:26→20:01)
[2017-05-13] MEDS: SODIUM CHLORIDE FLUSH 10ML SYR IVF SCH ×2 (08:26→20:01)
[2017-05-13] MEDS: LISINOPRIL 20 MG TABLET PO SCH (08:26)
[2017-05-13] MEDS: WARFARIN MODERAT DOSE PROTOCOL XX SCH (11:59)
[2017-05-13] MEDS: ENOXAPARIN 100 MG/ML SQ SCH ×2 (12:03→23:11)
[2017-05-13 14:14] VITALS: BP 125/84
[2017-05-13] MEDS ORDERED: WARFARIN 7.5 MG TABLET PO-COUM SCH (18:00)
[2017-05-13 18:49] VITALS: BP 136/87
[2017-05-13] MEDS: BACLOFEN 10 MG TABLET PO SCH (20:00)
[2017-05-13] MEDS: ONDANSETRON 2MG/ML, 2ML IVPush PRN (20:01)
[2017-05-13] MEDS: INSULIN DETEMIR 100 UNITS/ML, PEN SQ-INSULIN SCH (20:02)
[2017-05-13] MEDS: TEMOZOLOMIDE 140 MG HOMEMEDPO SCH (21:00)
[2017-05-14 03:38] VITALS: BP 153/92
[2017-05-14 06:51] VITALS: BP 138/87
[2017-05-14] MEDS: INSULIN ASPART 100 UNITS/ML, PEN SQ-INSULIN SCH ×2 (07:58→11:17)
[2017-05-14] MEDS: LISINOPRIL 20 MG TABLET PO SCH (08:02)
[2017-05-14] MEDS: DEXAMETHASONE 4 MG TABLET PO SCH ×2 (08:02→11:15)
[2017-05-14] MEDS: SODIUM CHLORIDE FLUSH 10ML SYR IVF SCH (08:02)
[2017-05-14] MEDS: LEVETIRACETAM 500 MG TABLET PO SCH (08:02)
[2017-05-14] MEDS ORDERED: ENOX100S4 SQ (08:35)
[2017-05-14] MEDS ORDERED: LEVE500T53 PO (08:35)
[2017-05-14] MEDS ORDERED: DEXA4TAB PO (08:35)
[2017-05-14] MEDS ORDERED: INSU100I28 SQ-INSULIN (08:35)
[2017-05-14] MEDS ORDERED: BACL-19 PO (08:35)
[2017-05-14] MEDS: WARFARIN MODERAT DOSE PROTOCOL XX SCH (10:31)
[2017-05-14] MEDS: ENOXAPARIN 100 MG/ML SQ SCH (11:15)
[2017-05-14] MEDS ORDERED: WARFARIN 5 MG TABLET PO-COUM ONE (18:00)
[2017-05-14] MEDS ORDERED: INSULIN DETEMIR 100 UNITS/ML, PEN SQ-INSULIN SCH (21:00)
== END 2017-05-14 14:30 | disposition home health service (06) | DRG 100 ==
LOC: ED 05-09 00:38 → EDIP 05-09 02:08 → 3NW 05-09 03:40
PROVIDERS: ADMIT Hospitalist; ATTEND Hospitalist
DX: G40.001 Localization-related (focal) (partial) idiopathic epilepsy and epileptic syndromes with seizures of localized onset, not intractable, with status epilepticus (principal); E43 Unspecified severe protein-calorie malnutrition; G93.89 Other specified disorders of brain; Z68.41 Body mass index [BMI] 40.0-44.9, adult; E11.9 Type 2 diabetes mellitus without complications; E78.5 Hyperlipidemia, unspecified; I10 Essential (primary) hypertension; Z85.841 Personal history of malignant neoplasm of brain; Z86.718 Personal history of other venous thrombosis and embolism
CPT/HCPCS: 36415; 70450; 70553; 77336; 77386; 77387; 77412; 80048; 80053; 80185; 80186; 82040; 82550; 82962; 83735; 85025; 85610; 93005; 95816; 96361; 96372; 96374; 96375; A9585; J1100; J1165; J1170; J1650; J1815; J1953; J2405; J3360; J1630; J2060; J7030

== ENCOUNTER → 2017-05-08 | Outpatient (CLI) | payer OTHER ==
[~2017-05-08] MED LIST changes: +INSU100V13 SQ-INSULIN; +LEVE100020 PO; +TEMO140C5 PO
== END | disposition home or self-care (01) ==
LOC: CARD 08:31
PROVIDERS: ATTEND Psychiatry & Neurology Neurology
DX: G40.209 Localization-related (focal) (partial) symptomatic epilepsy and epileptic syndromes with complex partial seizures, not intractable, without status epilepticus (principal)
CPT/HCPCS: 95819

== ENCOUNTER 2017-07-10 17:14 | Inpatient (IN) | payer OTHER ==
[~2017-07-10] VITALS: Ht 157.5 cm; Wt 104.1 kg
[~2017-07-10 17:14] MED LIST changes: -DEXAMETHASONE 4 MG TABLET ONE; -LACO100T PO
[2017-07-10] MEDS ORDERED: LACO100T PO (17:54)
[2017-07-10 18:00] LABS: BASOPHILS % (AUTO) 0 % (0-1); EOSINOPHILS # (AUTO) 0.01 x10^3/uL (0-0.4); EOSINOPHILS % (AUTO) 0 % (1-7); LYMPHOCYTES # (AUTO) 1.29 x10^3/uL (1-3.4); LYMPHOCYTES % (AUTO) 20 % (22-44); MD NO; MEAN CORPUSCULAR HEMOGLOBIN 29.8 pg (27.0-34.8); MEAN CORPUSCULAR VOLUME 90.3 fL (80-100); MEAN PLATELET VOLUME 7.5 fL (7.4-10.4); MONOCYTES # (AUTO) 0.49 x10^3/uL (0.2-0.8); MONOCYTES % (AUTO) 8 % (2-9); NEUTROPHILS # (AUTO) 4.67 x10^3/uL (1.8-6.8); NEUTROPHILS % (AUTO) 72 % (42-75); PLATELET COUNT 266 x10^3/uL (130-400); RED BLOOD COUNT 4.69 x10^6/uL (3.82-5.3); RED CELL DISTRIBUTION WIDTH 15.9 % (9.6-15.2)
[2017-07-10] MEDS ORDERED: DIAZEPAM 5 MG/ML, 2ML IVPush ONE (18:00)
[2017-07-10] MEDS ORDERED: SODIUM CHLORIDE FLUSH 10ML SYR IVF ONE (18:00)
[2017-07-10 18:09] LABS: ALANINE AMINOTRANSFERASE 33 U/L (12-78); ALBUMIN 2.8 g/dL (3.4-5.0); ANION GAP 9 mmol/L (5-15); CALCIUM 8.6 mg/dL (8.5-10.1); CHLORIDE 105 mmol/L (98-107); CREATININE 0.75 mg/dL (0.55-1.02)
[2017-07-10 18:11] LABS: ALKALINE PHOSPHATASE 50 U/L (45-117); BILIRUBIN,TOTAL 0.3 mg/dL (0.2-1.0); TOTAL PROTEIN 6.3 g/dL (6.4-8.2)
[2017-07-10] MEDS ORDERED: ACETAMINOPHEN 325 MG TABLET PO PRN (19:30)
[2017-07-10] MEDS ORDERED: POLYETHYLENE GLYCOL 17 GM PACKET PO PRN (19:30)
[2017-07-10] MEDS ORDERED: BISACODYL 10 MG SUPP PR PRN (19:30)
[2017-07-10] MEDS ORDERED: ONDANSETRON 2MG/ML, 2ML IVPush PRN (19:30)
[2017-07-10 19:48] LABS: HEMOGLOBIN A1C 9.5 % (4.2-6.3)
[2017-07-10] MEDS ORDERED: BACLOFEN 10 MG TABLET PO SCH (21:00)
[2017-07-10 21:30] VITALS: BP 129/85
[2017-07-10] MEDS: SODIUM CHLORIDE FLUSH 10ML SYR IVF SCH (21:37)
[2017-07-10] MEDS: DEXAMETHASONE 4 MG/ML, 1ML IVPush SCH (21:37)
[2017-07-10] MEDS: APIXABAN 5 MG TABLET PO SCH (21:37)
[2017-07-10] MEDS: LEVETIRACETAM 500 MG TABLET PO SCH (21:37)
[2017-07-10] MEDS: LACOSAMIDE 50 MG TABLET PO SCH (21:38)
[2017-07-10] MEDS: metFORMIN 500 MG TABLET PO SCH (21:38)
[2017-07-10] MEDS: INSULIN DETEMIR 100 UNITS/ML, PEN SQ-INSULIN SCH (21:38)
[2017-07-11] MEDS: DEXAMETHASONE 4 MG/ML, 1ML IVPush SCH ×2 (02:46→08:02)
[2017-07-11 02:57] VITALS: BP 118/76
[2017-07-11 04:34] LABS: MEAN CORPUSCULAR HGB CONC 33.2 g/dL (32.4-35.8); MEAN CORPUSCULAR VOLUME 90.4 fL (80-100); PLATELET COUNT 260 x10^3/uL (130-400); RED BLOOD COUNT 4.67 x10^6/uL (3.82-5.3); RED CELL DISTRIBUTION WIDTH 15.9 % (9.6-15.2)
[2017-07-11 04:35] LABS: BASOPHILS # (AUTO) 0.01 x10^3/uL (0-0.1); BASOPHILS % (AUTO) 0 % (0-1); EOSINOPHILS % (AUTO) 0 % (1-7); LYMPHOCYTES # (AUTO) 0.89 x10^3/uL (1-3.4); LYMPHOCYTES % (AUTO) 12 % (22-44); MD NO; MEAN PLATELET VOLUME 7.6 fL (7.4-10.4); MONOCYTES # (AUTO) 0.32 x10^3/uL (0.2-0.8); MONOCYTES % (AUTO) 4 % (2-9); NEUTROPHILS # (AUTO) 6.44 x10^3/uL (1.8-6.8); NEUTROPHILS % (AUTO) 84 % (42-75)
[2017-07-11 04:47] LABS: ALANINE AMINOTRANSFERASE 29 U/L (12-78); ALBUMIN 2.7 g/dL (3.4-5.0); ANION GAP 7 mmol/L (5-15); CALCIUM 8.7 mg/dL (8.5-10.1); CHLORIDE 107 mmol/L (98-107); CREATININE 0.66 mg/dL (0.55-1.02)
[2017-07-11 04:50] LABS: ALKALINE PHOSPHATASE 47 U/L (45-117); BILIRUBIN,TOTAL 0.4 mg/dL (0.2-1.0); TOTAL PROTEIN 6.1 g/dL (6.4-8.2)
[2017-07-11 07:09] VITALS: BP 122/83
[2017-07-11] MEDS: LEVETIRACETAM 500 MG TABLET PO SCH ×2 (08:01→21:03)
[2017-07-11] MEDS: LISINOPRIL 20 MG TABLET PO SCH (08:01)
[2017-07-11] MEDS: APIXABAN 5 MG TABLET PO SCH ×2 (08:01→21:02)
[2017-07-11] MEDS: LACOSAMIDE 50 MG TABLET PO SCH ×2 (08:01→21:03)
[2017-07-11] MEDS: SODIUM CHLORIDE FLUSH 10ML SYR IVF SCH ×2 (08:02→21:02)
[2017-07-11] MEDS: SENNA/DOCUSATE TABLET PO SCH (08:02)
[2017-07-11] MEDS: metFORMIN 500 MG TABLET PO SCH ×2 (08:02→21:02)
[2017-07-11] MEDS ORDERED: BACLOFEN 10 MG TABLET PO SCH (10:00)
[2017-07-11 13:28] VITALS: BP 134/87
[2017-07-11] MEDS ORDERED: DEXAMETHASONE 4 MG TABLET PO ONE ×2 (14:00→22:00)
[2017-07-11] MEDS ORDERED: DEXAMETHASONE 1.5 MG TABLET PO ONE ×2 (14:00→22:00)
[2017-07-11] MEDS: BACLOFEN 10 MG TABLET PO SCH ×3 (16:11→21:03)
[2017-07-11 19:00] VITALS: BP 121/80
[2017-07-11] MEDS: INSULIN DETEMIR 100 UNITS/ML, PEN SQ-INSULIN SCH (21:03)
[2017-07-12 04:40] VITALS: BP 138/70
[2017-07-12] MEDS ORDERED: DEXAMETHASONE 4 MG TABLET PO SCH ×2 (06:00→14:00)
[2017-07-12 07:36] VITALS: BP 125/83
[2017-07-12] MEDS: APIXABAN 5 MG TABLET PO SCH (08:20)
[2017-07-12] MEDS: LEVETIRACETAM 500 MG TABLET PO SCH (08:20)
[2017-07-12] MEDS: BACLOFEN 10 MG TABLET PO SCH (08:20)
[2017-07-12] MEDS: LISINOPRIL 20 MG TABLET PO SCH (08:20)
[2017-07-12] MEDS: LACOSAMIDE 50 MG TABLET PO SCH (08:20)
[2017-07-12] MEDS: metFORMIN 500 MG TABLET PO SCH (08:21)
[2017-07-12] MEDS: SODIUM CHLORIDE FLUSH 10ML SYR IVF SCH (08:21)
[2017-07-12] MEDS: SENNA/DOCUSATE TABLET PO SCH (08:21)
[2017-07-12 12:08] VITALS: BP 128/83
[2017-07-12] MEDS ORDERED: DEXAMETHASONE 1.5 MG TABLET PO SCH (14:00)
== END 2017-07-12 15:06 | disposition home or self-care (01) | DRG 55 ==
LOC: ED 18:22 → EDIP 18:34 → 3NW 19:41
PROVIDERS: ADMIT Internal Medicine; ATTEND Internal Medicine
DX: C71.9 Malignant neoplasm of brain, unspecified (principal); D68.69 Other thrombophilia; Z68.41 Body mass index [BMI] 40.0-44.9, adult; G40.802 Other epilepsy, not intractable, without status epilepticus; E11.9 Type 2 diabetes mellitus without complications; E66.9 Obesity, unspecified; I10 Essential (primary) hypertension; Z79.01 Long term (current) use of anticoagulants; Z79.4 Long term (current) use of insulin; Z79.899 Other long term (current) drug therapy; Z86.718 Personal history of other venous thrombosis and embolism; Z90.49 Acquired absence of other specified parts of digestive tract
CPT/HCPCS: 36415; 70450; 80053; 82962; 83036; 83735; 85025; 93005; 96374; J1100; J3360; J1815

== ENCOUNTER → 2017-07-10 | Outpatient (CLI) | payer OTHER ==
[~2017-07-10] MED LIST changes: +BACL-19 PO; +DEXAMETHASONE 4 MG TABLET ONE; +ENOX100S4 SQ; +INSU100I28 SQ-INSULIN; +INSU100V13 SQ-INSULIN; +LACO100T PO; +LEVE100020 PO; +TEMO140C5 PO
== END | disposition home or self-care (01) ==
LOC: ROC 14:33
PROVIDERS: ATTEND Radiology Radiation Oncology
DX: C71.9 Malignant neoplasm of brain, unspecified (principal); E11.9 Type 2 diabetes mellitus without complications
CPT/HCPCS: 99213; G0463

== ENCOUNTER → 2017-07-17 | Outpatient (CLI) | payer OTHER ==
[~2017-07-17] MED LIST changes: +LACO100T PO
== END | disposition home or self-care (01) ==
LOC: ROC 13:17
PROVIDERS: ATTEND Radiology Radiation Oncology
DX: C71.9 Malignant neoplasm of brain, unspecified (principal); Z92.3 Personal history of irradiation; Z79.4 Long term (current) use of insulin
CPT/HCPCS: 99212; G0463

== ENCOUNTER → 2017-08-07 | Outpatient (CLI) | payer OTHER ==
[~2017-08-07] MED LIST changes: +GADOBUTROL 10 MMOL/10 ML PFS ONE
== END ==
LOC: CFH 09:09
PROVIDERS: ATTEND Radiology Radiation Oncology
DX: C71.0 Malignant neoplasm of cerebrum, except lobes and ventricles (principal); Z98.890 Other specified postprocedural states; Z92.3 Personal history of irradiation
CPT/HCPCS: 70553; A9585

== ENCOUNTER → 2017-08-14 | Outpatient (CLI) | payer OTHER ==
[~2017-08-14] MED LIST changes: -GADOBUTROL 10 MMOL/10 ML PFS ONE
== END | disposition home or self-care (01) ==
LOC: ROC 14:49
PROVIDERS: ATTEND Radiology Radiation Oncology
DX: C71.1 Malignant neoplasm of frontal lobe (principal)
CPT/HCPCS: 99212; G0463

== ENCOUNTER → 2017-08-21 | Outpatient (CLI) | payer OTHER | END | disposition home or self-care (01) | LOC: ROC 13:42 | PROVIDERS: ATTEND Radiology Radiation Oncology | DX: Z08 Encounter for follow-up examination after completed treatment for malignant neoplasm (principal); C71.9 Malignant neoplasm of brain, unspecified; F32.9 Major depressive disorder, single episode, unspecified; Z79.4 Long term (current) use of insulin | CPT/HCPCS: 99213; G0463 ==

== ENCOUNTER → 2017-08-23 | Outpatient (CLI) | payer OTHER | LOC: CFH 16:35 | PROVIDERS: ATTEND Family Medicine | DX: M71.22 Synovial cyst of popliteal space [Baker], left knee (principal); Z86.718 Personal history of other venous thrombosis and embolism ==

== ENCOUNTER → 2017-09-07 | Outpatient (CLI) | payer OTHER ==
[~2017-09-07] MED LIST changes: +GADOBUTROL 10 MMOL/10 ML PFS ONE
== END | disposition home or self-care (01) ==
LOC: CFH 10:56
PROVIDERS: ATTEND Radiology Radiation Oncology
DX: C71.1 Malignant neoplasm of frontal lobe (principal); I10 Essential (primary) hypertension
CPT/HCPCS: 70553; A9585

== ENCOUNTER → 2017-11-24 | Outpatient (CLI) | payer OTHER ==
[~2017-11-24] MED LIST changes: -GADOBUTROL 10 MMOL/10 ML PFS ONE
== END | disposition home or self-care (01) ==
LOC: ROC 13:10
PROVIDERS: ATTEND Radiology Radiation Oncology
DX: Z08 Encounter for follow-up examination after completed treatment for malignant neoplasm (principal); C71.9 Malignant neoplasm of brain, unspecified
CPT/HCPCS: 99212; G0463

== ENCOUNTER 2017-12-30 00:30 | Emergency (ER) | payer OTHER ==
[~2017-12-30] VITALS: Ht 167.6 cm; Wt 107.0 kg
[~2017-12-30 00:30] MED LIST changes: -METF500T4 PO; +METF500T5 PO
[2017-12-30] MEDS ORDERED: DIAZEPAM 5 MG/ML, 10ML VIAL IV ONE (01:00)
[2017-12-30 01:22] LABS: BASOPHILS % (AUTO) 0 % (0-1); EOSINOPHILS # (AUTO) 0.01 x10^3/uL (0-0.4); EOSINOPHILS % (AUTO) 0 % (1-7); LYMPHOCYTES % (AUTO) 14 % (22-44); MD NO; MEAN CORPUSCULAR HEMOGLOBIN 32.9 pg (27.0-34.8); MEAN CORPUSCULAR HGB CONC 33.4 g/dL (32.4-35.8); MEAN CORPUSCULAR VOLUME 98.5 fL (80-100); MEAN PLATELET VOLUME 7.8 fL (7.4-10.4); MONOCYTES # (AUTO) 0.44 x10^3/uL (0.2-0.8); MONOCYTES % (AUTO) 9 % (2-9); NEUTROPHILS # (AUTO) 3.92 x10^3/uL (1.8-6.8); NEUTROPHILS % (AUTO) 77 % (42-75); PLATELET COUNT 197 x10^3/uL (130-400); RED BLOOD COUNT 3.79 x10^6/uL (3.82-5.3); RED CELL DISTRIBUTION WIDTH 14.4 % (9.6-15.2)
[2017-12-30 01:29] LABS: ALBUMIN 3.2 g/dL (3.4-5.0); ANION GAP 7 mmol/L (5-15); CALCIUM 8.7 mg/dL (8.5-10.1); CHLORIDE 110 mmol/L (98-107)
[2017-12-30 03:36] VITALS: BP 106/70
== END 2017-12-30 03:39 | disposition home or self-care (01) ==
LOC: ED 01:30
DX: G40.209 Localization-related (focal) (partial) symptomatic epilepsy and epileptic syndromes with complex partial seizures, not intractable, without status epilepticus (principal); I10 Essential (primary) hypertension; E11.9 Type 2 diabetes mellitus without complications; Z85.9 Personal history of malignant neoplasm, unspecified
CPT/HCPCS: 36415; 80048; 82040; 85025; 93005; 99285; J3360

== ENCOUNTER → 2018-02-15 | Outpatient (CLI) | payer OTHER | END | disposition home or self-care (01) | LOC: ROC 07:42 | PROVIDERS: ATTEND Radiology Radiation Oncology | DX: C71.9 Malignant neoplasm of brain, unspecified (principal); E11.9 Type 2 diabetes mellitus without complications; Z86.718 Personal history of other venous thrombosis and embolism | CPT/HCPCS: 99212; G0463 ==

== ENCOUNTER 2018-06-14 08:31 | Inpatient (IN) | payer OTHER ==
[~2018-06-14] VITALS: Ht 157.5 cm; Wt 123.8 kg
[~2018-06-14 08:31] MED LIST changes: +METF500T17 PO; -METF500T5 PO; -SENN1TAB7 PO; +SENN1TAB8 PO
[2018-06-14] MEDS ORDERED: LACOSAMIDE 100 MG in SODIUM CHLORIDE 0.9% 100 ML IV ONE (09:13)
[2018-06-14] MEDS ORDERED: DIAZEPAM 5 MG/ML, 2ML IV ONE ×2 (09:30→12:30)
[2018-06-14] MEDS ORDERED: LEVETIRACETAM 1,000 MG in SODIUM CHLORIDE 0.9% 100 ML IV ONE (09:30)
[2018-06-14] MEDS ORDERED: INSU100C5 SQ-INSULIN (10:03)
[2018-06-14] MEDS ORDERED: DEXAMETHASONE PO (10:03)
[2018-06-14] MEDS ORDERED: [UNRECOGNIZED DRUG - OTHER] SC (10:03)
[2018-06-14] MEDS ORDERED: OXYCARBAZEPINE PO (10:03)
[2018-06-14] MEDS ORDERED: IMMODIUM PO (10:03)
[2018-06-14] MEDS ORDERED: BACL-19 PO (10:03)
[2018-06-14] MEDS ORDERED: APIX5TAB PO (10:04)
[2018-06-14] MEDS ORDERED: LORA1TAB PO (10:05)
[2018-06-14] MEDS ORDERED: BISACODYL 10 MG SUPP PR PRN (13:30)
[2018-06-14] MEDS ORDERED: ONDANSETRON 2MG/ML, 2ML IVPush PRN (13:30)
[2018-06-14] MEDS ORDERED: ONDANSETRON ODT 4 MG PO PRN (13:30)
[2018-06-14] MEDS ORDERED: LABETALOL 5MG/ML, 20ML IVPush PRN (13:30)
[2018-06-14] MEDS ORDERED: DOCUSATE 100 MG CAPSULE PO PRN (13:30)
[2018-06-14] MEDS ORDERED: ENALAPRILAT 1.25 MG/ML, 2ML IVPush PRN (13:30)
[2018-06-14 13:36] LABS: BASOPHILS # (AUTO) 0.02 x10^3/uL (0-0.1); BASOPHILS % (AUTO) 0 % (0-1); EOSINOPHILS # (AUTO) 0.09 x10^3/uL (0-0.4); EOSINOPHILS % (AUTO) 2 % (1-7); LYMPHOCYTES # (AUTO) 0.97 x10^3/uL (1-3.4); LYMPHOCYTES % (AUTO) 19 % (22-44); MD NO; MEAN CORPUSCULAR HEMOGLOBIN 30.4 pg (27.0-34.8); MEAN CORPUSCULAR HGB CONC 33.9 g/dL (32.4-35.8); MEAN CORPUSCULAR VOLUME 89.8 fL (80-100); MEAN PLATELET VOLUME 7.3 fL (7.4-10.4); MONOCYTES # (AUTO) 0.48 x10^3/uL (0.2-0.8); MONOCYTES % (AUTO) 9 % (2-9); NEUTROPHILS # (AUTO) 3.61 x10^3/uL (1.8-6.8); NEUTROPHILS % (AUTO) 70 % (42-75); PLATELET COUNT 272 x10^3/uL (130-400); RED BLOOD COUNT 3.99 x10^6/uL (3.82-5.3); RED CELL DISTRIBUTION WIDTH 14.7 % (9.6-15.2)
[2018-06-14 13:48] LABS: ANION GAP 8 mmol/L (5-15); CALCIUM 8.2 mg/dL (8.5-10.1); CHLORIDE 111 mmol/L (98-107); CREATININE 0.51 mg/dL (0.55-1.02)
[2018-06-14 14:22] VITALS: BP 144/72
[2018-06-14 14:31] VITALS: BP 145/77
[2018-06-14] MEDS: BACLOFEN 10 MG TABLET PO SCH ×2 (16:53→19:53)
[2018-06-14] MEDS ORDERED: POTASSIUM CHLORIDE 40 MEQ in SODIUM CHLORIDE 0.9% 500 ML IV ONE (17:00)
[2018-06-14 18:36] VITALS: BP 125/78
[2018-06-14 18:55] LABS: HEMOGLOBIN A1C 9.9 % (4.2-6.3)
[2018-06-14] MEDS: LEVETIRACETAM 500 MG TABLET PO SCH (19:52)
[2018-06-14] MEDS: DEXAMETHASONE 1 MG TABLET PO SCH (19:53)
[2018-06-14] MEDS: APIXABAN 5 MG TABLET PO SCH (19:53)
[2018-06-14] MEDS: LACOSAMIDE 50 MG TABLET PO SCH (19:53)
[2018-06-14] MEDS: ACETAMINOPHEN 325 MG TABLET PO PRN (20:03)
[2018-06-14] MEDS: INSULIN LISPRO 100 UNITS/ML, PEN SQ-INSULIN SCH (20:39)
[2018-06-14] MEDS: OXCARBAZEPINE 300MG TABLET PO SCH (20:39)
[2018-06-14] MEDS: [UNRECOGNIZED DRUG - OTHER] SC SCH (20:39)
[2018-06-15] MEDS ORDERED: IBUPROFEN 600 MG TABLET ONE (00:13)
[2018-06-15] MEDS ORDERED: IBUPROFEN 200 MG TABLET PO ONE (00:30)
[2018-06-15 03:44] VITALS: BP 151/82
[2018-06-15] MEDS: ACETAMINOPHEN 325 MG TABLET PO PRN ×3 (03:54→22:09)
[2018-06-15 05:54] LABS: BASOPHILS # (AUTO) 0.01 x10^3/uL (0-0.1); BASOPHILS % (AUTO) 0 % (0-1); EOSINOPHILS # (AUTO) 0.03 x10^3/uL (0-0.4); EOSINOPHILS % (AUTO) 1 % (1-7); LYMPHOCYTES # (AUTO) 0.83 x10^3/uL (1-3.4); LYMPHOCYTES % (AUTO) 14 % (22-44); MD NO; MEAN CORPUSCULAR HEMOGLOBIN 29.4 pg (27.0-34.8); MEAN CORPUSCULAR HGB CONC 32.8 g/dL (32.4-35.8); MEAN CORPUSCULAR VOLUME 89.5 fL (80-100); MEAN PLATELET VOLUME 7.6 fL (7.4-10.4); MONOCYTES # (AUTO) 0.42 x10^3/uL (0.2-0.8); MONOCYTES % (AUTO) 7 % (2-9); NEUTROPHILS # (AUTO) 4.61 x10^3/uL (1.8-6.8); NEUTROPHILS % (AUTO) 78 % (42-75); PLATELET COUNT 279 x10^3/uL (130-400); RED BLOOD COUNT 4.04 x10^6/uL (3.82-5.3); RED CELL DISTRIBUTION WIDTH 14.6 % (9.6-15.2)
[2018-06-15 06:17] LABS: ANION GAP 10 mmol/L (5-15); CALCIUM 8.4 mg/dL (8.5-10.1); CHLORIDE 110 mmol/L (98-107); CREATININE 0.49 mg/dL (0.55-1.02)
[2018-06-15 06:52] VITALS: BP 132/84
[2018-06-15] MEDS: INSULIN LISPRO 100 UNITS/ML, PEN SQ-INSULIN SCH ×4 (07:21→22:24)
[2018-06-15] MEDS: LEVETIRACETAM 500 MG TABLET PO SCH ×2 (08:50→22:09)
[2018-06-15] MEDS: LACOSAMIDE 50 MG TABLET PO SCH ×2 (08:51→22:08)
[2018-06-15] MEDS: DEXAMETHASONE 1 MG TABLET PO SCH ×2 (08:52→22:10)
[2018-06-15] MEDS: APIXABAN 5 MG TABLET PO SCH ×2 (08:52→22:09)
[2018-06-15] MEDS: BACLOFEN 10 MG TABLET PO SCH ×3 (08:52→22:09)
[2018-06-15] MEDS: SENNA/DOCUSATE TABLET PO SCH (08:53)
[2018-06-15] MEDS: LISINOPRIL 20 MG TABLET PO SCH (08:53)
[2018-06-15] MEDS ORDERED: [UNRECOGNIZED DRUG - OTHER] SC SCH (09:00)
[2018-06-15 09:25] VITALS: BP 137/86
[2018-06-15] MEDS: DIAZEPAM 5 MG/ML, 10ML VIAL IV PRN ×2 (09:28→19:09)
[2018-06-15] MEDS: OXCARBAZEPINE 300MG TABLET PO SCH ×2 (10:15→22:09)
[2018-06-15] MEDS: FENTANYL 12 MCG PATCH TD SCH (11:45)
[2018-06-15] MEDS ORDERED: FENTANYL 12 MCG PATCH TD SCH (12:30)
[2018-06-15 13:39] VITALS: BP 143/83
[2018-06-15 13:39] LABS: MICROSCOPIC NOT IND
[2018-06-15 13:52] LABS: CULTURE INDICATED? NO
[2018-06-15] MEDS: [UNRECOGNIZED DRUG - OTHER] SC SCH (22:24)
[2018-06-16 02:17] VITALS: BP 160/93
[2018-06-16] MEDS: ACETAMINOPHEN 325 MG TABLET PO PRN ×5 (02:20→20:29)
[2018-06-16 07:08] VITALS: BP 139/86
[2018-06-16] MEDS: INSULIN LISPRO 100 UNITS/ML, PEN SQ-INSULIN SCH ×4 (07:41→20:30)
[2018-06-16] MEDS: SENNA/DOCUSATE TABLET PO SCH (09:00)
[2018-06-16] MEDS: OXCARBAZEPINE 150 MG TABLET PO SCH (09:19)
[2018-06-16] MEDS: DIAZEPAM 5 MG/ML, 10ML VIAL IV PRN (09:28)
[2018-06-16] MEDS: LACOSAMIDE 50 MG TABLET PO SCH ×2 (09:32→20:29)
[2018-06-16] MEDS: LEVETIRACETAM 500 MG TABLET PO SCH ×2 (09:32→20:29)
[2018-06-16] MEDS: LISINOPRIL 20 MG TABLET PO SCH (09:33)
[2018-06-16] MEDS: APIXABAN 5 MG TABLET PO SCH ×2 (09:33→20:29)
[2018-06-16] MEDS: DEXAMETHASONE 1 MG TABLET PO SCH ×2 (09:33→20:29)
[2018-06-16] MEDS: BACLOFEN 10 MG TABLET PO SCH ×3 (09:33→20:29)
[2018-06-16 12:07] VITALS: BP 148/82
[2018-06-16 20:26] VITALS: BP 119/73
[2018-06-16] MEDS: OXCARBAZEPINE 300MG TABLET PO SCH (20:29)
[2018-06-16] MEDS: [UNRECOGNIZED DRUG - OTHER] SC SCH (20:30)
[2018-06-17 01:03] VITALS: BP 120/77
[2018-06-17] MEDS: IBUPROFEN 200 MG TABLET PO PRN ×3 (01:05→18:42)
[2018-06-17] MEDS: ACETAMINOPHEN 325 MG TABLET PO PRN ×3 (03:47→19:34)
[2018-06-17 06:53] VITALS: BP 119/77
[2018-06-17] MEDS: APIXABAN 5 MG TABLET PO SCH ×2 (08:20→19:41)
[2018-06-17] MEDS: DEXAMETHASONE 1 MG TABLET PO SCH ×2 (08:20→19:41)
[2018-06-17] MEDS: BACLOFEN 10 MG TABLET PO SCH ×3 (08:20→19:41)
[2018-06-17] MEDS: OXCARBAZEPINE 150 MG TABLET PO SCH (08:21)
[2018-06-17] MEDS: LACOSAMIDE 50 MG TABLET PO SCH ×2 (08:22→19:40)
[2018-06-17] MEDS: LISINOPRIL 20 MG TABLET PO SCH (08:23)
[2018-06-17] MEDS: LEVETIRACETAM 500 MG TABLET PO SCH ×2 (08:26→19:40)
[2018-06-17] MEDS: SENNA/DOCUSATE TABLET PO SCH (08:32)
[2018-06-17] MEDS: INSULIN LISPRO 100 UNITS/ML, PEN SQ-INSULIN SCH ×4 (09:50→20:02)
[2018-06-17 12:55] VITALS: BP 132/81
[2018-06-17] MEDS ORDERED: MAGNESIUM SULFATE PMX 2GM/50ML 50 ML IV ONE (16:00)
[2018-06-17] MEDS: LORazepam 2 MG/ML, 1ML IVPush PRN (16:13)
[2018-06-17] MEDS: OXCARBAZEPINE 300MG TABLET PO SCH (19:41)
[2018-06-17 19:51] VITALS: BP 132/85
[2018-06-17] MEDS: [UNRECOGNIZED DRUG - OTHER] SC SCH (20:00)
[2018-06-18] MEDS: ACETAMINOPHEN 325 MG TABLET PO PRN ×3 (01:05→21:22)
[2018-06-18 03:46] VITALS: BP 132/78
[2018-06-18] MEDS: IBUPROFEN 200 MG TABLET PO PRN ×2 (04:41→17:53)
[2018-06-18 04:57] LABS: ANION GAP 7 mmol/L (5-15); CALCIUM 7.8 mg/dL (8.5-10.1); CHLORIDE 103 mmol/L (98-107)
[2018-06-18 06:40] VITALS: BP 142/86
[2018-06-18] MEDS ORDERED: MAGNESIUM SULFATE PMX 2GM/50ML 50 ML IV ONE (07:30)
[2018-06-18] MEDS: OXCARBAZEPINE 150 MG TABLET PO SCH (08:29)
[2018-06-18] MEDS: DEXAMETHASONE 1 MG TABLET PO SCH ×2 (08:29→21:22)
[2018-06-18] MEDS: APIXABAN 5 MG TABLET PO SCH ×2 (08:29→21:23)
[2018-06-18] MEDS: LISINOPRIL 20 MG TABLET PO SCH (08:30)
[2018-06-18] MEDS: LACOSAMIDE 50 MG TABLET PO SCH ×2 (08:30→21:23)
[2018-06-18] MEDS: LEVETIRACETAM 500 MG TABLET PO SCH ×2 (08:30→21:22)
[2018-06-18] MEDS: BACLOFEN 10 MG TABLET PO SCH ×3 (08:36→21:23)
[2018-06-18] MEDS: SENNA/DOCUSATE TABLET PO SCH ×2 (08:36→10:47)
[2018-06-18] MEDS: INSULIN LISPRO 100 UNITS/ML, PEN SQ-INSULIN SCH ×4 (10:56→21:44)
[2018-06-18] MEDS: FENTANYL REMOVE PATCH NOTE XX SCH (11:30)
[2018-06-18 12:21] VITALS: BP 154/95
[2018-06-18] MEDS: FENTANYL 12 MCG PATCH TD SCH (13:43)
[2018-06-18 20:00] VITALS: BP 147/82
[2018-06-18] MEDS: OXCARBAZEPINE 300MG TABLET PO SCH (21:23)
[2018-06-18] MEDS: [UNRECOGNIZED DRUG - OTHER] SC SCH (21:45)
[2018-06-19 03:26] VITALS: BP 119/77
[2018-06-19] MEDS: ACETAMINOPHEN 325 MG TABLET PO PRN ×2 (04:31→21:06)
[2018-06-19] MEDS: IBUPROFEN 200 MG TABLET PO PRN ×3 (06:00→20:16)
[2018-06-19 06:48] VITALS: BP 118/76
[2018-06-19 08:40] LABS: ANION GAP 7 mmol/L (5-15); CALCIUM 7.7 mg/dL (8.5-10.1); CHLORIDE 106 mmol/L (98-107); CREATININE 0.46 mg/dL (0.55-1.02)
[2018-06-19] MEDS: LORazepam 2 MG/ML, 1ML IVPush PRN (09:04)
[2018-06-19] MEDS: BACLOFEN 10 MG TABLET PO SCH ×3 (09:29→20:01)
[2018-06-19] MEDS: APIXABAN 5 MG TABLET PO SCH ×2 (09:29→20:16)
[2018-06-19] MEDS: DEXAMETHASONE 1 MG TABLET PO SCH ×2 (09:30→20:02)
[2018-06-19] MEDS: LEVETIRACETAM 500 MG TABLET PO SCH ×2 (09:30→20:01)
[2018-06-19] MEDS: LISINOPRIL 20 MG TABLET PO SCH (09:30)
[2018-06-19] MEDS: OXCARBAZEPINE 150 MG TABLET PO SCH (09:36)
[2018-06-19] MEDS: LACOSAMIDE 50 MG TABLET PO SCH ×2 (09:36→20:01)
[2018-06-19] MEDS: INSULIN LISPRO 100 UNITS/ML, PEN SQ-INSULIN SCH ×4 (09:40→20:16)
[2018-06-19 13:10] VITALS: BP 136/81
[2018-06-19] MEDS ORDERED: MAGNESIUM SULFATE PMX 2GM/50ML 50 ML IV ONE (15:30)
[2018-06-19] MEDS: OXCARBAZEPINE 300MG TABLET PO SCH (20:01)
[2018-06-19 20:02] VITALS: BP 142/83
[2018-06-19] MEDS: [UNRECOGNIZED DRUG - OTHER] SC SCH (20:16)
[2018-06-20 02:18] VITALS: BP 128/79
[2018-06-20] MEDS: IBUPROFEN 200 MG TABLET PO PRN ×2 (05:42→16:07)
[2018-06-20] MEDS: ACETAMINOPHEN 325 MG TABLET PO PRN ×2 (06:44→19:22)
[2018-06-20 07:00] VITALS: BP 132/8
[2018-06-20] MEDS: INSULIN LISPRO 100 UNITS/ML, PEN SQ-INSULIN SCH ×5 (07:00→21:11)
[2018-06-20 07:47] LABS: ANION GAP 7 mmol/L (5-15); CHLORIDE 107 mmol/L (98-107); CREATININE 0.56 mg/dL (0.55-1.02)
[2018-06-20] MEDS ORDERED: MAGNESIUM SULFATE PMX 2GM/50ML 50 ML IV ONE (09:30)
[2018-06-20] MEDS: DEXAMETHASONE 1 MG TABLET PO SCH ×2 (09:44→21:05)
[2018-06-20] MEDS: LISINOPRIL 20 MG TABLET PO SCH (09:45)
[2018-06-20] MEDS: SENNA/DOCUSATE TABLET PO SCH (09:45)
[2018-06-20] MEDS: OXCARBAZEPINE 150 MG TABLET PO SCH (09:45)
[2018-06-20] MEDS: LEVETIRACETAM 500 MG TABLET PO SCH ×2 (09:46→21:06)
[2018-06-20] MEDS: BACLOFEN 10 MG TABLET PO SCH ×3 (09:46→21:07)
[2018-06-20] MEDS: LACOSAMIDE 50 MG TABLET PO SCH ×2 (09:47→21:09)
[2018-06-20] MEDS: APIXABAN 5 MG TABLET PO SCH ×2 (09:47→21:06)
[2018-06-20 13:44] VITALS: BP 144/83
[2018-06-20 20:01] VITALS: BP 137/68
[2018-06-20] MEDS ORDERED: [UNRECOGNIZED DRUG - OTHER] SC SCH (21:00)
[2018-06-20] MEDS: OXCARBAZEPINE 300MG TABLET PO SCH (21:08)
[2018-06-21 01:22] VITALS: BP 110/56
[2018-06-21] MEDS: IBUPROFEN 200 MG TABLET PO PRN (01:43)
[2018-06-21] MEDS: ACETAMINOPHEN 325 MG TABLET PO PRN (02:53)
[2018-06-21 07:53] VITALS: BP 146/78
[2018-06-21] MEDS: LEVETIRACETAM 500 MG TABLET PO SCH (07:57)
[2018-06-21] MEDS: INSULIN LISPRO 100 UNITS/ML, PEN SQ-INSULIN SCH ×2 (07:57→12:40)
[2018-06-21] MEDS: DEXAMETHASONE 1 MG TABLET PO SCH (07:57)
[2018-06-21] MEDS: APIXABAN 5 MG TABLET PO SCH (07:57)
[2018-06-21] MEDS: LISINOPRIL 20 MG TABLET PO SCH (07:58)
[2018-06-21] MEDS: OXCARBAZEPINE 150 MG TABLET PO SCH (07:58)
[2018-06-21] MEDS: BACLOFEN 10 MG TABLET PO SCH (07:58)
[2018-06-21] MEDS: SENNA/DOCUSATE TABLET PO SCH (07:59)
[2018-06-21] MEDS: LACOSAMIDE 50 MG TABLET PO SCH (07:59)
[2018-06-21] MEDS ORDERED: OXCA150T18 PO (09:08)
[2018-06-21] MEDS ORDERED: LACO50TA PO (09:08)
[2018-06-21] MEDS ORDERED: FENT1PAT74 TD (09:08)
[2018-06-21] MEDS ORDERED: [UNRECOGNIZED DRUG - OTHER] SC (09:09)
[2018-06-21] MEDS: FENTANYL REMOVE PATCH NOTE XX SCH (11:30)
[2018-06-21 12:12] VITALS: BP 110/76
[2018-06-21] MEDS: FENTANYL 12 MCG PATCH TD SCH (12:41)
[2018-06-21] MEDS ORDERED: [UNRECOGNIZED DRUG - OTHER] SC SCH (21:00)
== END 2018-06-21 13:48 | disposition home health service (06) | DRG 55 ==
LOC: ED 10:36 → EDIP 12:27 → 3NW 13:30
PROVIDERS: ADMIT Internal Medicine; ATTEND Internal Medicine
DX: C71.9 Malignant neoplasm of brain, unspecified (principal); Z68.42 Body mass index [BMI] 45.0-49.9, adult; G81.94 Hemiplegia, unspecified affecting left nondominant side; D68.69 Other thrombophilia; Z00.6 Encounter for examination for normal comparison and control in clinical research program; Z51.5 Encounter for palliative care; Z86.718 Personal history of other venous thrombosis and embolism; Z79.01 Long term (current) use of anticoagulants; Z79.4 Long term (current) use of insulin; Z74.01 Bed confinement status; E66.01 Morbid (severe) obesity due to excess calories; E83.42 Hypomagnesemia; E11.9 Type 2 diabetes mellitus without complications; I10 Essential (primary) hypertension; K52.9 Noninfective gastroenteritis and colitis, unspecified; R13.10 Dysphagia, unspecified; G89.29 Other chronic pain
CPT/HCPCS: 36415; 80048; 81003; 82962; 83036; 83735; 84100; 84443; 85025; 96365; 96366; 96368; 96375; 99285; C9254; G0378; J1953; J3360; J3480; J1815; J2060; J3475; J7040

== ENCOUNTER → 2018-08-13 | Outpatient (CLI) | payer OTHER ==
[~2018-08-13] MED LIST changes: +APIX5TAB PO; +DEXAMETHASONE PO; +FENT1PAT74 TD; +IMMODIUM PO; +INSU100C5 SQ-INSULIN; +LACO50TA PO; +LORA1TAB PO; +OXCA150T18 PO; +OXYCARBAZEPINE PO; +SIMV5TAB14 PO; -SIMV5TAB5 PO; +[UNRECOGNIZED DRUG - OTHER] SC
== END | disposition home or self-care (01) ==
LOC: RAD 16:06
PROVIDERS: ATTEND Specialist
DX: Z45.2 Encounter for adjustment and management of vascular access device (principal); C71.9 Malignant neoplasm of brain, unspecified
CPT/HCPCS: 36573; C1751